=== PATIENT | female | born 1995 ===

== ENCOUNTER 2025-04-19 08:14 | Outpatient (CLI) | payer MEDICAID | END 2025-04-19 17:00 | disposition home or self-care (01) | LOC: Rad HDHVI 08:14 | PROVIDERS: ATTEND Internal Medicine Cardiovascular Disease | DX: R07.9 Chest pain, unspecified (principal) | CPT/HCPCS: 93306 ==

== ENCOUNTER 2025-04-25 08:43 | Outpatient (CLI) | payer MEDICAID ==
[~2025-04-25] VITALS: Ht 154.9 cm; Wt 71.7 kg
--- NOTE | 2025-05-05 09:51 | DVHSR ---
APPROVED REPORT Exam: Nuclear Stress Test Indication: Chest pain Ht: 5 ft 1 in Wt: 158 lbs BSA: 1.71 m2 HR: 62 bpm BP: 123/74 mmHg BMI: 29.85 Rhythm: NSR with sinus arrhythmia Medical History Medical History: Hypercholesterolemia, Smoking Medications: Hydroxyzine Allergies: No known drug allergies Cardiac Risk Factors: Family Hx of CAD Stress Test Details Stress Test: Exercise stress testing was performed using a Kb protocol. HR Resting HR: 62 bpmMax Heart Rate (APMHR): 191.373677 bpm Max HR Achieved: 184 bpmTarget HR (85% APMHR): 162.403225 bpm % of APMHR: 96.34 Recovery HR: 91 bpm HR response to stress: Normal HR response to stress BP Resting BP: 123/74 mmHg Max BP: 161/72 mmHg Recovery BP: 133/78 mmHg BP response to stress: Normal blood pressure response to stress. ECG Resting ECG: Sinus Rhythm Stress ECG: Sinus Tachycardia Arrhythmia: PACs Recovery ECG: Sinus Rhythm Clinical Reason for Termination: Target HR achieved Stress Symptoms: None Exercise duration: 7 min 00 sec Exercise capacity: 10.0 METs Stress ECG Conclusion NON ISCHEMIC CLINICAL RESPONSE NON ISCHEMIC ECG RESPONSE NON ISCHEMIC CARDIOLITE PERFUSION SCAN EF >55% NM EXAM: Myocardial Perfusion REST/STRESS Imaging Protocol: Rest Tc-99m/Stress Tc-99m 1 day Resting Data Rest SPECT myocardial perfusion imaging was performed in supine position 30 minutes following the int ravenous injection of 10.87 mCi of Tc-99m Sestamibi. Time of rest injection: 0850 Date: 04/25/2025 Time of rest imagin Date: 04/25/2025 Administration Route: IV Administration Site: Right AC Exercise Stress At peak stress, the patient was injected intravenously with 32.7 mCi of Tc-99m Sestamibi. Time of stress injection: 1054 Date: 04/25/2025 Time of stress imagin Date: 04/25/2025 Administration Route: IV Administration Site: Right AC Heart Rate at time of stress injection: 162 bpm. Patient continued to exercise for 1 minute(s). Gated Stress SPECT was performed 15 minutes after stress injection. The images were gated to evaluate regional wall motion and calculate left ventricular ejection fracti on. Comments Cardiolite injection at 5 minutes, 59 seconds into test. Nuclear Conclusion NON ISCHEMIC CLINICAL RESPONSE NON ISCHEMIC ECG RESPONSE NON ISCHEMIC CARDIOLITE PERFUSION SCAN EF >55%
== END 2025-04-25 17:00 | disposition home or self-care (01) ==
LOC: Rad HDHVI 08:43
PROVIDERS: ATTEND Internal Medicine Cardiovascular Disease
DX: I49.8 Other specified cardiac arrhythmias (principal); I49.1 Atrial premature depolarization; R00.0 Tachycardia, unspecified; R07.89 Other chest pain; E78.00 Pure hypercholesterolemia, unspecified; Z82.49 Family history of ischemic heart disease and other diseases of the circulatory system; Z87.891 Personal history of nicotine dependence
CPT/HCPCS: 78452; 93017; A9500; 96374